=== PATIENT | female | born 1980 | race Caucasian/White ===

== ENCOUNTER 2019-01-13 17:46 | Emergency (ER) | payer MEDICAID ==
[~2019-01-13] VITALS: Ht 165.1 cm; Wt 65.9 kg
[~2019-01-13 17:46] MED LIST: IBUP-1985 PO
[2019-01-13 18:06] VITALS: BP 180/92
== END 2019-01-13 18:29 | disposition home or self-care (01) ==
LOC: ER 17:46
DX: T20.50XA Corrosion of first degree of head, face, and neck, unspecified site, initial encounter (principal); T21.51XA Corrosion of first degree of chest wall, initial encounter; T22.511A Corrosion of first degree of right forearm, initial encounter; T65.891A Toxic effect of other specified substances, accidental (unintentional), initial encounter; Y93.89 Activity, other specified; Y92.89 Other specified places as the place of occurrence of the external cause; Y99.8 Other external cause status; Z79.899 Other long term (current) drug therapy; Z60.2 Problems related to living alone; Z56.0 Unemployment, unspecified
CPT/HCPCS: 99281

== ENCOUNTER 2019-03-29 02:41 | Emergency (ER) | payer MEDICAID ==
[~2019-03-29] VITALS: Ht 165.1 cm; Wt 63.6 kg
[2019-03-29 03:01] VITALS: BP 154/84
--- NOTE | 2019-03-29 03:53 | NUR ---
Staff reports patient LWOBS, while attempting to gather assement Data. Dr Hylton informed
== END 2019-03-29 03:56 | disposition left against medical advice (07) ==
LOC: ER 02:43
DX: L02.31 Cutaneous abscess of buttock (principal); Z53.21 Procedure and treatment not carried out due to patient leaving prior to being seen by health care provider

== ENCOUNTER 2019-05-10 07:27 | Emergency (ER) | payer MEDICAID ==
[~2019-05-10] VITALS: Ht 165.1 cm; Wt 69.0 kg
--- NOTE | 2019-05-10 07:56 | NUR ---
states right ear pain x 2 days has dental appointment on 14, believes its r/t dental caries
[2019-05-10] MEDS ORDERED: COROTSUS OT (08:14)
[2019-05-10] MEDS ORDERED: AMOX-419 PO (08:14)
[2019-05-10 08:30] VITALS: BP 138/86
== END 2019-05-10 08:33 | disposition home or self-care (01) ==
LOC: ER 07:27
DX: H60.91 Unspecified otitis externa, right ear (principal); K08.89 Other specified disorders of teeth and supporting structures; Z56.0 Unemployment, unspecified
CPT/HCPCS: 99283

== ENCOUNTER 2019-06-24 02:29 | Emergency (ER) | payer MEDICAID ==
[~2019-06-24] VITALS: Ht 165.1 cm; Wt 68.5 kg
[~2019-06-24 02:29] MED LIST changes: +COROTSUS OT
[2019-06-24 02:34] VITALS: BP 176/85
== END 2019-06-24 05:09 | disposition left against medical advice (07) ==
LOC: ER 02:30
DX: R21 Rash and other nonspecific skin eruption (principal); Z53.21 Procedure and treatment not carried out due to patient leaving prior to being seen by health care provider; Z79.899 Other long term (current) drug therapy

== ENCOUNTER 2019-07-03 05:10 | Emergency (ER) | payer MEDICAID ==
[~2019-07-03] VITALS: Ht 165.1 cm; Wt 68.4 kg
[2019-07-03 05:15] VITALS: BP 183/87
[2019-07-03] MEDS ORDERED: DOXY100C2 PO (05:30)
== END 2019-07-03 05:37 | disposition home or self-care (01) ==
LOC: ER 05:10
DX: A64 Unspecified sexually transmitted disease (principal); Z60.2 Problems related to living alone; Z56.0 Unemployment, unspecified; Z79.899 Other long term (current) drug therapy
CPT/HCPCS: 99283

== ENCOUNTER 2019-08-19 21:18 | Emergency (ER) | payer MEDICAID ==
[~2019-08-19] VITALS: Ht 165.1 cm; Wt 63.6 kg
[2019-08-19 21:20] VITALS: BP 156/89
== END 2019-08-19 22:32 | disposition left against medical advice (07) ==
LOC: ER 21:18
DX: L02.214 Cutaneous abscess of groin (principal); Z53.21 Procedure and treatment not carried out due to patient leaving prior to being seen by health care provider; Z79.899 Other long term (current) drug therapy

== ENCOUNTER 2020-03-10 00:22 | Inpatient (IN) | payer MEDICAID ==
[~2020-03-10] VITALS: Ht 165.1 cm; Wt 67.7 kg
[2020-03-10] MEDS ORDERED: morphine 4 MG/ML inj SYRINge IV ONE (01:25)
[2020-03-10] MEDS ORDERED: ondansetron/PF 4mg/2ml inj IV ONE (01:25)
[2020-03-10 01:31] LABS: BASOPHILS % (AUTO) 0.1 % (0-1); EOSINOPHILS # (AUTO) 0.2 X10'3 (0-0.9); HEMATOCRIT 46.9 % (35.0-45.0); HEMOGLOBIN 14.9 g/dl (12.0-16.0); LYMPHOCYTES # (AUTO) 2.5 X10'3 (1.1-4.8); LYMPHOCYTES % (AUTO) 13.9 % (21-51); MEAN CORPUSCULAR HEMOGLOBIN 24.8 PG (27.0-31.0); MEAN CORPUSCULAR HGB CONC 31.7 g/dL (33.0-36.5); MEAN CORPUSCULAR VOLUME 78.4 FL (78-98); MEAN PLATELET VOLUME 8.7 FL (7.4-10.4); MONOCYTES # (AUTO) 1.6 X10'3 (0-0.9); NEUTROPHILS # (AUTO) 13.5 X10'3 (1.8-7.7); PLATELET COUNT 250 X10'3 (140-440); RED BLOOD COUNT 5.99 X10'6 (4.20-5.60); RED CELL DISTRIBUTION WIDTH 14.7 % (11.5-14.5); WHITE BLOOD COUNT 17.8 X10'3 (4.5-11.0)
[2020-03-10 01:39] LABS: ALANINE AMINOTRANSFERASE 33 U/L (12-78); ALBUMIN 3.3 G/DL (3.4-5.0); ALBUMIN/GLOBULIN RATIO 0.8 (1.1-1.5); ALKALINE PHOSPHATASE 279 IU/L (46-116); ANION GAP 4 (8-16); ASPARTATE AMINO TRANSFERASE 31 U/L (10-37); BILIRUBIN,TOTAL 1.3 MG/DL (0.1-1.0); BLOOD UREA NITROGEN 13 MG/DL (7-18); CALCIUM 8.9 MG/DL (8.5-10.1); CHLORIDE 107 MMOL/L (99-107); GLUCOSE 150 MG/DL (70-104); LIPASE 83 U/L (73-393); POTASSIUM 4.7 MMOL/L (3.5-5.1); SODIUM 138 MMOL/L (135-145); TOTAL CARBON DIOXIDE 26.8 MMOL/L (24-32); TOTAL PROTEIN 7.5 G/DL (6.4-8.2); eGFR > 90 ML/MIN
[2020-03-10 02:15] LABS: CLARITY,URINE CLEAR (Clear); GLUCOSE, URINE NEGATIVE (Neg); KETONES,URINE NEGATIVE (Neg); LEUKOCYTE ESTERASE ,URINE NEGATIVE (Neg); NITRITES, URINE NEGATIVE (Neg); OCCULT BLOOD,URINE TRACE-LYSED (Neg); PROTEIN,URINE TRACE mg/dl (Neg)
[2020-03-10 02:16] LABS: URINE HCG NEGATIVE (NEG)
[2020-03-10 02:17] LABS: COLOR,URINE DARK YELLOW (Yellow); UA COLLECTION TYPE CLN CATCH MIDSTREAM
[2020-03-10 02:22] LABS: BACTERIA,URINE NONE SEEN /HPF (Neg); WBC,URINE 0-4 /HPF (0-4)
[2020-03-10 02:23] LABS: HYALINE CASTS 0-3 /LPF (NEGATIVE); MUCUS STRANDS MANY /LPF (Neg); SQUAMOUS EPITHELIAL CELL,UR MODERATE /LPF (FEW)
--- NOTE | 2020-03-10 02:25 | NUR ---
Pt. to CT scan at this time.
--- NOTE | 2020-03-10 02:39 | NUR ---
Pt. back to ED room 7.
[2020-03-10] MEDS ORDERED: metroNIDAZOLE-Flagyl 500mg/NS 100 ML IV ONE (03:15)
[2020-03-10] MEDS ORDERED: levoFLOXACIN-Levaquin 500mg/D5 100 ML IV ONE (03:15)
[2020-03-10] MEDS ORDERED: ondansetron/PF 4mg/2ml inj IV PRN (04:40)
[2020-03-10] MEDS: normal saline 1000ml 1,000 ML IV SCH ×3 (05:06→20:11)
--- NOTE | 2020-03-10 06:17 | NUR ---
Problems reprioritized. Patient report given, questions answered & plan of care reviewed with Najma ZAVALETA.
--- NOTE | 2020-03-10 07:15 | NUR ---
Patient in room [facility]. I have received report from WAQAR Doe form ED and had the opportunity to ask questions and assume patient care.
[2020-03-10 07:41] VITALS: BP 157/70
[2020-03-10] MEDS: metroNIDAZOLE-Flagyl 500mg/NS 100 ML IV SCH ×2 (08:32→16:30)
[2020-03-10] MEDS: diatr meglu/diatrizoate 30ml oral sol.-(3 dose) bottle PO SCH ×3 (08:32→15:08)
[2020-03-10 10:15] LABS: BASOPHILS # (AUTO) 0.1 X10'3 (0-0.2); BASOPHILS % (AUTO) 0.3 % (0-1); EOSINOPHILS # (AUTO) 0.2 X10'3 (0-0.9); EOSINOPHILS % (AUTO) 1.4 % (0-6); HEMATOCRIT 44.2 % (35.0-45.0); HEMOGLOBIN 14.2 g/dl (12.0-16.0); LYMPHOCYTES # (AUTO) 2.3 X10'3 (1.1-4.8); LYMPHOCYTES % (AUTO) 13.6 % (21-51); MEAN PLATELET VOLUME 8.4 FL (7.4-10.4); MONOCYTES # (AUTO) 1.1 X10'3 (0-0.9); MONOCYTES % (AUTO) 6.4 % (2-12); NEUTROPHILS # (AUTO) 13.4 X10'3 (1.8-7.7); NEUTROPHILS % (AUTO) 78.3 % (42-75); PLATELET COUNT 212 X10'3 (140-440); RED BLOOD COUNT 5.67 X10'6 (4.20-5.60); RED CELL DISTRIBUTION WIDTH 15.1 % (11.5-14.5); WHITE BLOOD COUNT 17.2 X10'3 (4.5-11.0)
[2020-03-10 11:00] VITALS: BP 169/86
[2020-03-10] MEDS: morphine 2 MG/ML inj. syringe IV PRN ×2 (11:24→21:08)
[2020-03-10] MEDS ORDERED: iohexol 350MG/ML 100ml bottle IV ONE (14:37)
[2020-03-10] MEDS ORDERED: iohexol 300mg/ml 100ml inj. ONE (14:38)
--- NOTE | 2020-03-10 15:00 | NUR ---
Patient in room [facility]. I have received report from WAQAR Yao and had the opportunity to ask questions and assume patient care.
--- NOTE | 2020-03-10 19:00 | NUR ---
Problems reprioritized. Patient report given, questions answered & plan of care reviewed with WAQAR Denis.
--- NOTE | 2020-03-10 19:15 | NUR ---
Patient in room [facility]. I have received report from ANDRESSA ZAVALETA and had the opportunity to ask questions and assume patient care.
--- NOTE | 2020-03-10 20:00 | NUR ---
PT REFUSED 1999 VITAL SIGNS. EDUCATED PT. WILL CONTINUE TO MONITOR.
[2020-03-10] MEDS: levoFLOXACIN-Levaquin 500mg/D5 100 ML IV SCH (21:06)
[2020-03-11] VITALS: BP 165/86
[2020-03-11] MEDS: metroNIDAZOLE-Flagyl 500mg/NS 100 ML IV SCH ×2 (00:43→08:54)
[2020-03-11] MEDS: normal saline 1000ml 1,000 ML IV SCH ×3 (03:26→10:04)
[2020-03-11 05:18] LABS: BASOPHILS % (AUTO) 0.2 % (0-1); EOSINOPHILS # (AUTO) 0.4 X10'3 (0-0.9); EOSINOPHILS % (AUTO) 3.3 % (0-6); HEMOGLOBIN 13.7 g/dl (12.0-16.0); LYMPHOCYTES # (AUTO) 3.6 X10'3 (1.1-4.8); LYMPHOCYTES % (AUTO) 29.9 % (21-51); MEAN CORPUSCULAR HEMOGLOBIN 24.8 PG (27.0-31.0); MEAN CORPUSCULAR HGB CONC 31.9 g/dL (33.0-36.5); MEAN CORPUSCULAR VOLUME 77.9 FL (78-98); MEAN PLATELET VOLUME 8.7 FL (7.4-10.4); MONOCYTES % (AUTO) 8.6 % (2-12); NEUTROPHILS # (AUTO) 6.9 X10'3 (1.8-7.7); PLATELET COUNT 218 X10'3 (140-440); RED BLOOD COUNT 5.52 X10'6 (4.20-5.60); RED CELL DISTRIBUTION WIDTH 14.9 % (11.5-14.5); WHITE BLOOD COUNT 11.9 X10'3 (4.5-11.0)
[2020-03-11 05:22] LABS: ALANINE AMINOTRANSFERASE 36 U/L (12-78); ALBUMIN 2.4 G/DL (3.4-5.0); ALBUMIN/GLOBULIN RATIO 0.6 (1.1-1.5); ALKALINE PHOSPHATASE 242 IU/L (46-116); ANION GAP 7 (8-16); ASPARTATE AMINO TRANSFERASE 34 U/L (10-37); BILIRUBIN,TOTAL 2.4 MG/DL (0.1-1.0); BLOOD UREA NITROGEN 6 MG/DL (7-18); CALCIUM 8.6 MG/DL (8.5-10.1); CHLORIDE 109 MMOL/L (99-107); CREATININE 0.43 MG/DL (0.40-0.90); GLUCOSE 82 MG/DL (70-104); POTASSIUM 3.9 MMOL/L (3.5-5.1); SODIUM 141 MMOL/L (135-145); TOTAL CARBON DIOXIDE 24.9 MMOL/L (24-32); TOTAL PROTEIN 6.3 G/DL (6.4-8.2); eGFR > 90 ML/MIN
--- NOTE | 2020-03-11 06:05 | NUR ---
Patient in room [facility]. I have received report from WAQAR Denis and had the opportunity to ask questions and assume patient care.
[2020-03-11 06:30] VITALS: BP 180/109
--- NOTE | 2020-03-11 06:36 | NUR ---
Problems reprioritized. Patient report given, questions answered & plan of care reviewed with Glenda RN.
[2020-03-11] MEDS ORDERED: hyDRALAzine 10mg tablet PO PRN (07:35)
[2020-03-11] MEDS ORDERED: lisinopril 10 MG tablet PO SCH (08:00)
[2020-03-11] MEDS: levoFLOXACIN-Levaquin 500mg/D5 100 ML IV SCH (10:02)
[2020-03-11 11:00] VITALS: BP 154/67
--- NOTE | 2020-03-11 12:00 | NUR ---
Pt states she is leaving AMA, refuses CBC.
--- NOTE | 2020-03-11 12:20 | NUR ---
Pt has agreed to have CBC, but is then leaving whether MD AGUILAR'd her or not & Dr Deutsch has agreed to give pt rx's for abx's.
[2020-03-11 12:48] LABS: BASOPHILS % (AUTO) 0.1 % (0-1); EOSINOPHILS # (AUTO) 0.3 X10'3 (0-0.9); EOSINOPHILS % (AUTO) 2.6 % (0-6); HEMATOCRIT 44.5 % (35.0-45.0); HEMOGLOBIN 14.2 g/dl (12.0-16.0); LYMPHOCYTES # (AUTO) 2.4 X10'3 (1.1-4.8); LYMPHOCYTES % (AUTO) 19.9 % (21-51); MEAN CORPUSCULAR HEMOGLOBIN 24.7 PG (27.0-31.0); MEAN CORPUSCULAR HGB CONC 31.9 g/dL (33.0-36.5); MEAN CORPUSCULAR VOLUME 77.2 FL (78-98); MEAN PLATELET VOLUME 8.7 FL (7.4-10.4); MONOCYTES % (AUTO) 8.1 % (2-12); NEUTROPHILS # (AUTO) 8.3 X10'3 (1.8-7.7); NEUTROPHILS % (AUTO) 69.3 % (42-75); PLATELET COUNT 227 X10'3 (140-440); RED BLOOD COUNT 5.76 X10'6 (4.20-5.60); RED CELL DISTRIBUTION WIDTH 14.8 % (11.5-14.5)
--- NOTE | 2020-03-11 13:15 | NUR ---
Pt refuses to have colonoscopy & HIDA scan as recommended by GI MD Dr Queen. Dr Deutsch informed pt of this & pt states she is leaving AMA. gave rx's for abx's, which will be called into pt's preferred pharmacy.
--- NOTE | 2020-03-11 16:08 | NUR ---
Pt attempting to get a hold of somebody to pick her up so she can leave AMA still.
--- NOTE | 2020-03-11 16:20 | NUR ---
Pt left AMA. IV DC'd, tip intact.
== END 2020-03-11 16:19 | disposition left against medical advice (07) ==
LOC: ER 00:23 → ED HOLD 04:40 → SUR 3N 07:07
PROVIDERS: ADMIT Internal Medicine; ATTEND Internal Medicine
DX: K80.00 Calculus of gallbladder with acute cholecystitis without obstruction (principal); F15.90 Other stimulant use, unspecified, uncomplicated; K52.9 Noninfective gastroenteritis and colitis, unspecified; N83.202 Unspecified ovarian cyst, left side; Z53.29 Procedure and treatment not carried out because of patient's decision for other reasons
CPT/HCPCS: 36415; 74176; 74177; 80053; 81001; 81025; 82948; 83605; 83690; 84145; 85025; 87040; 87081; 93005; 96365; 96375; 99285; G0378; J1956; J2270; J2405; J3490; J7030; Q9963; Q9967

== ENCOUNTER 2020-04-11 20:41 | Emergency (ER) | payer MEDICAID ==
[~2020-04-11] VITALS: Ht 165.1 cm; Wt 68.2 kg
[2020-04-11] MEDS ORDERED: AMOX500C2 PO (21:09)
[2020-04-11] MEDS ORDERED: amoxicillin 250mg capsule PO ONE (21:10)
--- NOTE | 2020-04-11 21:12 | NUR ---
PER PT AMOXICILLIN IS OKAY FOR HER TO TAKE. SHE HAS TAKEN IT BEFORE WITHOUT ANY REACTION
[2020-04-11 21:18] VITALS: BP 182/95
== END 2020-04-11 21:17 | disposition home or self-care (01) ==
LOC: ER 20:41
DX: H60.11 Cellulitis of right external ear (principal); H92.01 Otalgia, right ear; Z60.2 Problems related to living alone; Z56.0 Unemployment, unspecified; Z88.1 Allergy status to other antibiotic agents; Z79.2 Long term (current) use of antibiotics
CPT/HCPCS: 99283

== ENCOUNTER 2020-12-02 19:35 | Emergency (ER) | payer MEDICAID ==
[~2020-12-02] VITALS: Ht 165.1 cm; Wt 75.1 kg
[2020-12-02] MEDS ORDERED: CIPR10DR LEFT EAR (20:35)
[2020-12-02 20:45] VITALS: BP 175/84
== END 2020-12-02 20:47 | disposition home or self-care (01) ==
LOC: ER 19:35
DX: S09.91XA Unspecified injury of ear, initial encounter (principal); Z56.0 Unemployment, unspecified; Z88.0 Allergy status to penicillin; Z79.2 Long term (current) use of antibiotics; X58.XXXA Exposure to other specified factors, initial encounter; Y93.89 Activity, other specified; Y92.89 Other specified places as the place of occurrence of the external cause; Y99.8 Other external cause status
CPT/HCPCS: 99283

== ENCOUNTER 2021-01-25 08:05 | Emergency (ER) | payer MEDICAID ==
[~2021-01-25] VITALS: Ht 165.1 cm; Wt 64.5 kg
[2021-01-25 09:08] VITALS: BP 174/85
[2021-01-25] MEDS ORDERED: HYDR-3972 PO (09:31)
[2021-01-25] MEDS ORDERED: CLIN-97 PO (09:31)
== END 2021-01-25 09:37 | disposition home or self-care (01) ==
LOC: ER 08:06
DX: K08.89 Other specified disorders of teeth and supporting structures (principal); K13.79 Other lesions of oral mucosa; F17.200 Nicotine dependence, unspecified, uncomplicated; Z60.2 Problems related to living alone; Z56.0 Unemployment, unspecified; Z88.0 Allergy status to penicillin; Z79.2 Long term (current) use of antibiotics; Z79.899 Other long term (current) drug therapy
CPT/HCPCS: 99283

== ENCOUNTER 2021-01-26 19:02 | Emergency (ER) | payer MEDICAID ==
[~2021-01-26 19:02] MED LIST changes: +CLIN-97 PO; -COROTSUS OT; +HYDR-3972 PO; -IBUP-1985 PO
== END 2021-01-26 19:06 | disposition left against medical advice (07) ==
LOC: ER 19:03
DX: R51.9 Headache, unspecified (principal); Z53.21 Procedure and treatment not carried out due to patient leaving prior to being seen by health care provider

== ENCOUNTER 2022-01-03 09:52 | Emergency (ER) | payer MEDICAID ==
[~2022-01-03] VITALS: Ht 165.1 cm; Wt 63.0 kg
[~2022-01-03 09:52] MED LIST changes: -HYDR-3972 PO
[2022-01-03 10:05] VITALS: BP 186/95
[2022-01-03] MEDS ORDERED: AZIT-83 PO (10:25)
== END 2022-01-03 10:33 | disposition home or self-care (01) ==
LOC: ER 09:53
DX: J02.9 Acute pharyngitis, unspecified (principal); Z60.2 Problems related to living alone; Z56.0 Unemployment, unspecified; Z88.0 Allergy status to penicillin; Z79.2 Long term (current) use of antibiotics
CPT/HCPCS: 99283

== ENCOUNTER 2022-02-18 21:27 | Emergency (ER) | payer MEDICAID ==
--- NOTE | 2022-02-18 21:30 | NUR ---
not in lobby
--- NOTE | 2022-02-18 22:00 | NUR ---
not in lobby
--- NOTE | 2022-02-18 22:51 | NUR ---
not in lobby
== END 2022-02-18 22:52 | disposition left against medical advice (07) ==
LOC: ER 21:28
DX: Z53.21 Procedure and treatment not carried out due to patient leaving prior to being seen by health care provider (principal)

== ENCOUNTER 2022-02-19 04:05 | Emergency (ER) | payer MEDICAID ==
[~2022-02-19] VITALS: Ht 165.1 cm; Wt 67.3 kg
[2022-02-19 04:18] VITALS: BP 205/109
[2022-02-19] MEDS: acetaminophen 325mg tablet PO ONE (04:41)
[2022-02-19] MEDS: oxymetazoline 15 ML nasal spray NS ONE (04:41)
--- NOTE | 2022-02-19 04:46 | NUR ---
OK TO DISCHARGE PER MD
== END 2022-02-19 04:49 | disposition home or self-care (01) ==
LOC: ER 04:07
DX: B34.9 Viral infection, unspecified (principal); R05.9 Cough, unspecified; R09.89 Other specified symptoms and signs involving the circulatory and respiratory systems; J34.89 Other specified disorders of nose and nasal sinuses; F17.200 Nicotine dependence, unspecified, uncomplicated; Z60.2 Problems related to living alone; Z56.0 Unemployment, unspecified; Z88.0 Allergy status to penicillin; Z79.2 Long term (current) use of antibiotics
CPT/HCPCS: 99283

== ENCOUNTER 2022-07-27 22:14 | Emergency (ER) | payer MEDICAID ==
[~2022-07-27] VITALS: Ht 165.1 cm; Wt 66.4 kg
--- NOTE | 2022-07-27 23:00 | NUR ---
called to triage not in lobby went outside and called patient . no pt to be seen or answered
--- NOTE | 2022-07-27 23:26 | NUR ---
called pt again to be seen both inside and outside . pt not present at this time .
[2022-07-28] VITALS: BP_DIAS 98
[2022-07-28] MEDS ORDERED: LISI40TA13 PO (00:43)
[2022-07-28] MEDS ORDERED: CLIN150C8 PO (00:43)
[2022-07-28] MEDS ORDERED: metoprolol tartrate 50mg tablet PO ONE (00:45)
[2022-07-28] MEDS ORDERED: clindamycin 150mg capsule PO ONE (00:45)
[2022-07-28 01:13] VITALS: BP_SYST 178
== END 2022-07-28 01:29 | disposition home or self-care (01) ==
LOC: ER 22:16
DX: K08.89 Other specified disorders of teeth and supporting structures (principal); I10 Essential (primary) hypertension; Z79.899 Other long term (current) drug therapy; Z88.0 Allergy status to penicillin; Z79.2 Long term (current) use of antibiotics
CPT/HCPCS: 99283

== ENCOUNTER 2022-11-29 19:09 | Emergency (ER) | payer MEDICAID ==
[~2022-11-29] VITALS: Ht 165.1 cm; Wt 67.3 kg
[~2022-11-29 19:09] MED LIST changes: +CLIN150C8 PO
[2022-11-29 20:13] LABS: BASOPHILS % (AUTO) 0.2 % (0-1); EOSINOPHILS # (AUTO) 0.1 X10'3 (0-0.9); EOSINOPHILS % (AUTO) 0.8 % (0-6); HEMATOCRIT 54.7 % (35.0-45.0); LYMPHOCYTES # (AUTO) 1.9 X10'3 (1.1-4.8); LYMPHOCYTES % (AUTO) 24.7 % (21-51); MEAN CORPUSCULAR HEMOGLOBIN 26.3 PG (27.0-31.0); MEAN CORPUSCULAR HGB CONC 32.9 g/dL (33.0-36.5); MEAN PLATELET VOLUME 8.7 FL (7.4-10.4); MONOCYTES # (AUTO) 1.2 X10'3 (0-0.9); MONOCYTES % (AUTO) 15.6 % (2-12); NEUTROPHILS # (AUTO) 4.4 X10'3 (1.8-7.7); NEUTROPHILS % (AUTO) 58.7 % (42-75); PLATELET COUNT 246 X10'3 (140-440); RED BLOOD COUNT 6.84 X10'6 (4.20-5.60); RED CELL DISTRIBUTION WIDTH 14.5 % (11.5-14.5); WHITE BLOOD COUNT 7.5 X10'3 (4.5-11.0)
[2022-11-29] MEDS ORDERED: ondansetron/PF 4mg/2ml inj IV ONE (20:25)
[2022-11-29] MEDS ORDERED: normal saline 1000ml 1,000 ML IV ONE (20:25)
[2022-11-29 20:35] LABS: ALANINE AMINOTRANSFERASE 44 U/L (12-78); ALBUMIN 2.9 G/DL (3.4-5.0); ALBUMIN/GLOBULIN RATIO 0.6 (1.1-1.5); ALKALINE PHOSPHATASE 234 IU/L (46-116); ANION GAP 9 (8-16); ASPARTATE AMINO TRANSFERASE 74 U/L (10-37); BILIRUBIN,TOTAL 1.1 MG/DL (0.1-1.0); BLOOD UREA NITROGEN 10 MG/DL (7-18); BUN/CREATININE RATIO 14.9 (6.6-38.0); CHLORIDE 104 MMOL/L (99-107); CREATININE 0.67 MG/DL (0.40-0.90); GLUCOSE 283 MG/DL (70-104); LIPASE < 50 U/L (73-393); POTASSIUM 3.6 MMOL/L (3.5-5.1); SODIUM 135 MMOL/L (135-145); TOTAL CARBON DIOXIDE 21.7 MMOL/L (24-32); TOTAL PROTEIN 7.5 G/DL (6.4-8.2); eGFR > 90 ML/MIN
[2022-11-29] MEDS ORDERED: insulin regular, human 10 units/0.1 ml syringe IV ONE (21:00)
[2022-11-29 21:11] LABS: CALCIUM 8.9 MG/DL (8.5-10.1)
[2022-11-29] MEDS ORDERED: ONDA8TAB13 PO (21:37)
[2022-11-29 21:46] LABS: CLARITY,URINE SLIGHTLY CLOUDY (Clear); COLOR,URINE YELLOW (Yellow); GLUCOSE, URINE 250 mg/dl (Neg); KETONES,URINE NEGATIVE (Neg); LEUKOCYTE ESTERASE ,URINE NEGATIVE (Neg); NITRITES, URINE POSITIVE (Neg); OCCULT BLOOD,URINE MODERATE (Neg); PH,URINE 5.5 (4.8-8.0); PROTEIN,URINE 30 mg/dl (Neg)
[2022-11-29 21:47] LABS: URINE HCG NEGATIVE (NEG)
[2022-11-29 21:51] LABS: UA COLLECTION TYPE CLN CATCH MIDSTREAM
[2022-11-29 21:54] LABS: BACTERIA,URINE 3+ /HPF (Neg); SQUAMOUS EPITHELIAL CELL,UR MANY /LPF (FEW)
--- NOTE | 2022-11-29 21:54 | NUR ---
LAB HAS ENOUGH URINE TO RUN UA BUT NOT TO DO A CULTURE, AND IT DOESN'T LOOK LIKE A CLEAN SPECIMEN.
[2022-11-29 22:02] LABS: URINE AMPHETAMINE SCREEN POSITIVE (Neg); URINE BARBITUATE SCREEN NEGATIVE (Neg); URINE BENZODIAZEPINES SCREEN NEGATIVE (Neg); URINE CANNABINOID SCREEN NEGATIVE (Neg); URINE COCAINE SCREEN NEGATIVE (Neg); URINE METHADONE SCREEN NEGATIVE (Neg); URINE OPIATE SCREEN NEGATIVE (Neg); URINE PHENCYCLIDINE SCREEN NEGATIVE (Neg)
[2022-11-29] MEDS ORDERED: CIPR-259 PO (22:05)
[2022-11-29] MEDS ORDERED: CefTRIAXone/D5W-Rocephin 1gm 50 ML IV ONE (22:05)
[2022-11-29 22:34] VITALS: BP 170/79
== END 2022-11-29 22:35 | disposition home or self-care (01) ==
LOC: ER 19:10
DX: E11.9 Type 2 diabetes mellitus without complications (principal); N39.0 Urinary tract infection, site not specified; R10.84 Generalized abdominal pain; R19.7 Diarrhea, unspecified; R11.2 Nausea with vomiting, unspecified; Z56.0 Unemployment, unspecified; Z60.2 Problems related to living alone; Z88.0 Allergy status to penicillin; Z79.2 Long term (current) use of antibiotics; Z79.899 Other long term (current) drug therapy
CPT/HCPCS: 80053; 80305; 81001; 81025; 82948; 83690; 85025; 93005; 96361; 96365; 96375; 99284; J0696; J1815; J2405; J7030

== ENCOUNTER 2023-04-18 23:36 | Inpatient (IN) | payer MEDICAID ==
[~2023-04-18] VITALS: Ht 165.1 cm; Wt 68.2 kg
[~2023-04-18 23:36] MED LIST changes: +ONDA8TAB13 PO
[2023-04-19 00:42] LABS: BASOPHILS % (AUTO) 0.3 % (0-1); EOSINOPHILS # (AUTO) 0.1 X10'3 (0-0.9); HEMOGLOBIN 13.7 g/dl (12.0-16.0); LYMPHOCYTES # (AUTO) 3.4 X10'3 (1.1-4.8); LYMPHOCYTES % (AUTO) 26.7 % (21-51); MEAN CORPUSCULAR HEMOGLOBIN 26.2 PG (27.0-31.0); MEAN CORPUSCULAR HGB CONC 32.7 g/dL (33.0-36.5); MEAN CORPUSCULAR VOLUME 80.2 FL (78-98); MEAN PLATELET VOLUME 8.7 FL (7.4-10.4); MONOCYTES # (AUTO) 1.1 X10'3 (0-0.9); MONOCYTES % (AUTO) 8.6 % (2-12); NEUTROPHILS # (AUTO) 8.1 X10'3 (1.8-7.7); NEUTROPHILS % (AUTO) 63.4 % (42-75); PLATELET COUNT 218 X10'3 (140-440); RED BLOOD COUNT 5.23 X10'6 (4.20-5.60); RED CELL DISTRIBUTION WIDTH 14.9 % (11.5-14.5); WHITE BLOOD COUNT 12.8 X10'3 (4.5-11.0)
[2023-04-19] MEDS ORDERED: normal saline 1000ML IV soln IVB ONE (00:45)
[2023-04-19 00:54] LABS: ALANINE AMINOTRANSFERASE 24 U/L (12-78); ALBUMIN 2.8 G/DL (3.4-5.0); ALBUMIN/GLOBULIN RATIO 0.8 (1.1-1.5); ALKALINE PHOSPHATASE 256 IU/L (46-116); ANION GAP 4 (8-16); ASPARTATE AMINO TRANSFERASE 23 U/L (10-37); BILIRUBIN,TOTAL 2.2 MG/DL (0.1-1.0); BLOOD UREA NITROGEN 9 MG/DL (7-18); BUN/CREATININE RATIO 10.6 (10.0-20.0); CALCIUM 8.3 MG/DL (8.5-10.1); CHLORIDE 106 MMOL/L (99-107); CREATININE 0.85 MG/DL (0.40-0.90); GLUCOSE 165 MG/DL (70-104); MAGNESIUM 1.6 MG/DL (1.5-2.4); SODIUM 138 MMOL/L (135-145); TOTAL PROTEIN 6.4 G/DL (6.4-8.2); eGFR 73 ML/MIN
[2023-04-19 00:55] LABS: POTASSIUM 3.7 MMOL/L (3.5-5.1)
[2023-04-19] MEDS ORDERED: adenosine 3mg/ml 2ml vial IV ONE ×2 (02:00)
[2023-04-19] MEDS ORDERED: verapamil 2.5 mg/ml inj IV ONE ×2 (04:15→05:10)
[2023-04-19] MEDS ORDERED: ondansetron/PF 4mg/2ml inj IV ONE (05:35)
[2023-04-19] MEDS ORDERED: magnesium 2GM in 50ml NS 50 ML IV PRN (05:55)
[2023-04-19] MEDS ORDERED: ondansetron/PF 4mg/2ml inj IV PRN (05:55)
[2023-04-19] MEDS ORDERED: morphine 2 MG/ML inj. syringe IV PRN ×2 (05:55)
[2023-04-19] MEDS ORDERED: acetaminophen 325mg tablet PO PRN ×2 (05:55)
[2023-04-19] MEDS ORDERED: magnesium 4gm in 100ml NS 100 ML IV PRN (05:55)
[2023-04-19] MEDS ORDERED: normal saline 1000ml 1,000 ML IV SCH ×2 (05:55→06:40)
[2023-04-19] MEDS ORDERED: potassium Cl 20 mEq SR tablet PO PRN ×2 (05:55)
[2023-04-19] MEDS ORDERED: potassium Cl 40MEQ/1/2NS 520ml 520 ML IV PRN (05:55)
[2023-04-19] MEDS ORDERED: HYDROcodone/acetaminophen 5mg/325mg tablet PO PRN (05:55)
[2023-04-19] MEDS ORDERED: magnesium Cl slow-release 64mg tablet PO PRN (05:55)
[2023-04-19] MEDS ORDERED: HYDROcodone/acetaminophen 10/325mg tab PO PRN (05:55)
[2023-04-19] MEDS ORDERED: MESSAGE TO PHARMACY PO ONE (06:25)
[2023-04-19] MEDS ORDERED: glucagon, human recombinant 1mg kit SUBCUT PRN (06:25)
[2023-04-19] MEDS ORDERED: DEXTROSE 15 GM of carb/4 tabs (each vial/BOTTLE has 4 tablets) PO PRN ×2 (06:25)
[2023-04-19] MEDS ORDERED: dextrose 50%-water 50ml dispensing syringe IV PRN ×2 (06:25)
[2023-04-19] MEDS ORDERED: insulin Lispro (HumaLOG) vial - multi-dose SQ SCH (06:25)
[2023-04-19] MEDS ORDERED: amiodarone/D5 360MG/200ML BAG 200 ML IV SCH (06:30)
[2023-04-19] MEDS ORDERED: amiodarone 150mg/dext, iso-os 100 ML IV ONE (06:30)
[2023-04-19] MEDS ORDERED: CefTRIAXone/D5W-Rocephin 1gm 50 ML IV ONE (06:30)
[2023-04-19] MEDS ORDERED: albuterol 2.5 MG/3 ML nebule NEB PRN (06:40)
[2023-04-19 06:51] VITALS: BP 150/96
[2023-04-19 06:55] LABS: D-DIMER 0.63 MG/L FEU (0-0.50)
--- NOTE | 2023-04-19 07:23 | NUR ---
STRESS TEST RN CAME TO GET PT AND PT HR 160. PT UNABLE TO COMPLETE TEST AT THIS TIME. PT HIGHLY ANXIOUS AND REFUSING ANXIETY MEDICATION. RN WILL CONT TO MONITOR.
--- NOTE | 2023-04-19 07:28 | NUR ---
PT REFUSING PO MEDICATION INCLUDING COREG DESPITE BEING EDUCATED BY THE RN OF THE IMPORTANCE OF DECREASING HER HEART RATE. PT AGREED FOR RN TO START A NEW IV AND GIVE ANTIBIOTIC. PT STATED THAT SHE WILL TAKE PO MEDICATION BUT SHE WANTS TO SPEAK WITH HOSPITALIST BEFORE SHE DOES. RN WILL NOTIFY .
--- NOTE | 2023-04-19 07:35 | NUR ---
RN PAGED DR VÁZQUEZ- ED 3- [facility]. PT REFUSING PO MEDS/COREG UNTIL SHE SPEAKS TO MD. REFUSES ANXIETY MED/THREAT TO LEAVE AMA/HR 160'S/COULDNT COMPLETE STRESS TEST. ALSO PAGED TO CALL ED BACK.
--- NOTE | 2023-04-19 07:55 | NUR ---
PT REFUSING ALL CARE AT THIS TIME. PT REFUSED FOR RN TO START IV TO HANG ANTIBIOTICS. PT REFUSED PO MEDS. PT STATES SHE WANTS TO LEAVE AMA DESPITE BEING EDUCATED ABOUT THE RISKS AND THE POSIBILITY OF . PT VERBALIZED UNDERSTANDING TO EDUCATION PROVIDED BY THE RN. RN PAGED DR VÁZQUEZ- ED 3 [place]- PT WANTS TO TALK TO THE DR OR SHE WILL LEAVE AMA. PT REFUSING ALL CARE AT THIS TIME. CRISTINE HERRMANN STILL GOING/HR 160'S.
[2023-04-19] MEDS ORDERED: heparin, porcine 5000 units/ml vial SQ SCH (08:00)
[2023-04-19] MEDS ORDERED: nicotine 14mg patch - 24hr TD SCH (08:00)
[2023-04-19] MEDS ORDERED: carVEDilol 3.125mg tablet PO SCH (08:00)
[2023-04-19] MEDS ORDERED: furosemide 40mg/4ml inj IV SCH (08:00)
[2023-04-19] MEDS ORDERED: lisinopril 10 MG tablet PO SCH (08:00)
--- NOTE | 2023-04-19 08:42 | NUR ---
PT AGREED FOR RN TO CK HER BG BUT IS REFUSING OTHER CARE. RN EDUCATED PT ABOUT RISKS OF NOT GETTING PO MEDS. BG 159. PT IS STILL STATING SHE WANTS TO LEAVE AMA BUT IS NOT SIGNING THE FORM AND THEN STATES SHE WANTS TO SPEAK TO DR. RN PAGED DR VÁZQUEZ TO CALL ED.
--- NOTE | 2023-04-19 08:48 | NUR ---
DR VÁZQUEZ CALLED ED AND STATED THAT HE WILL COME SEE PT WHEN ROUNDING AND THAT RN SHOULD CONT TO TRY TO EDUCATE PT. RN WILL CONTINUE TO EDUCATE/RECOMMEND RECEIVING CARE/AND MONITOR.
--- NOTE | 2023-04-19 09:32 | NUR ---
PT DEMANDED TO LEAVE AMA. RN EDUCATED PT ABOUT THE RISKS OF LEAVING AMA AND SHE VERBALIZED UNDERSTANDING AND CONTINUED TO DEMAND TO LEAVE. PT DID AGREE TO SIGN AMA FORM AND SIGNED. IV WAS DISCONTINUED WITH TIP INTACT AND NO COMPLICATION. RN WILL NOTIFY DR VÁZQUEZ.
--- NOTE | 2023-04-19 09:42 | NUR ---
RN PAGED DR VÁZQUEZ THAT PT LEFT AMA.
[2023-04-19] MEDS ORDERED: insulin glargine (Lantus) pen - multi-dose SQ SCH (21:00)
== END 2023-04-19 10:19 | disposition left against medical advice (07) | DRG 194 ==
LOC: ER 23:37 → ED HOLD 04-19 05:55 → UNDOADMIN 04-19 05:55 → ED HOLD 04-19 06:03 → UNDODISIN 04-19 10:19
PROVIDERS: ADMIT Internal Medicine; ATTEND Family Medicine
DX: I11.0 Hypertensive heart disease with heart failure (principal); I48.92 Unspecified atrial flutter; E11.9 Type 2 diabetes mellitus without complications; F15.90 Other stimulant use, unspecified, uncomplicated; F17.210 Nicotine dependence, cigarettes, uncomplicated; D72.829 Elevated white blood cell count, unspecified; Z53.29 Procedure and treatment not carried out because of patient's decision for other reasons; I50.23 Acute on chronic systolic (congestive) heart failure; Z60.2 Problems related to living alone; R00.0 Tachycardia, unspecified; I48.91 Unspecified atrial fibrillation; Z85.41 Personal history of malignant neoplasm of cervix uteri; Z88.0 Allergy status to penicillin; Z56.0 Unemployment, unspecified; Z79.899 Other long term (current) drug therapy; Z71.51 Drug abuse counseling and surveillance of drug abuser; Z71.6 Tobacco abuse counseling
CPT/HCPCS: 36415; 71045; 80053; 82948; 83605; 83735; 83880; 84145; 84439; 84443; 84484; 85025; 85379; 87040; 94760; 99285; G0378; J0153; J0282; J1815; J2405; J3490; J7030

== ENCOUNTER 2024-04-26 14:25 | Emergency (ER) | payer MEDICAID, SELFPAY ==
[~2024-04-26 14:25] MED LIST changes: +CLIN-214 PO; -CLIN150C8 PO
== END 2024-04-26 14:59 | disposition left against medical advice (07) ==
LOC: ER 14:26
DX: Z53.21 Procedure and treatment not carried out due to patient leaving prior to being seen by health care provider (principal)

== ENCOUNTER 2024-04-27 01:12 | Emergency (ER) | payer MEDICAID, SELFPAY ==
[~2024-04-27] VITALS: Ht 165.1 cm; Wt 67.0 kg
[2024-04-27 01:36] VITALS: BP_DIAS 97; RESP 18; TEMP 98; O2SAT 94
[2024-04-27 02:04] VITALS: BP_SYST 204; PULSE 97
[2024-04-27] MEDS: amLODIPine 5mg tablet PO ONE (02:04)
== END 2024-04-27 02:07 | disposition home or self-care (01) ==
LOC: ER 01:13
DX: I10 Essential (primary) hypertension (principal); H18.899 Other specified disorders of cornea, unspecified eye
CPT/HCPCS: 99283; 99284